=== PATIENT | female | born 2000 ===

== ENCOUNTER 2018-02-11 12:06 | Inpatient (IN) | payer OTHER ==
--- NOTE | 2018-01-28 20:50 | BGECT ---
[f rep st] OUTPATIENT ECT ECT CONSULTATION IDENTIFYING DATA: Ms. Vonda Lu is a single white female, brought in by her parents, Tita and Lincoln, on the referral of an ECT psychiatrist in [place], [place], Charan Malik MD. She also has a psychiatrist there, Ludin Coburn ([phone]). She is about to begin her sophomore year at . Up until returning to [place], where she will be living in an apartment with roommates, she had been living with her parents and 2 sisters (the 3 of them make up a group of triplets). She is studying early childhood lead teacher education. This patient presents here now on the referral of Dr. Malik, who provided collateral information in order to continue presumed continuation and then maintenance electroconvulsive therapy on the heels of her having received 11 acute right unilateral treatments under his care in [place]. 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 She also suffers with panic disorder by history. She felt no improvement up until 8 treatments, and then terminated at 11, presumptively in part because she was uncomfortable with the cognitive effects she was beginning to experience. She is not fully in remission at this point, scoring a 13 on her QIDS rating scale, and on question 12 she scores a 3, indicating "I think of suicide or several times a day in some detail, or I have made specific plans for suicide, or I have actually tried to take my life." She is endorsing some initial insomnia, middle insomnia , and as well as hypersomnia on this test, and "I feel sad nearly all the time, " scoring 3 on question #5. Her present medications at this time, which effectively did not change during the course of ECT, include Pristiq 100 mg p.o. daily, Lamictal 200 mg p.o. twice daily (she has never had a lamotrigine blood level), leucovorin 25 mg #3 per day, trazodone 100 mg at bedtime, control pills, Xyzal 5 mg at bedtime, Singulair 10 mg p.o. at bedtime, multivitamin, vitamin D, iron, and calcium. She takes Klonopin 0.5 mg, Atarax 50 mg, and Zofran 8 mg p.r.n., and Amerge 2.5 mg, and 2 Aleve with migraine. She describes herself as treatment resistant, per her psychiatrist, having tried and failed Wellbutrin, Celexa, Lexapro, Zoloft, Cymbalta, BuSpar, Vistaril , and Abilify. She had a few months of benefit from Pristiq, Lamictal, and leucovorin for her depression, and Klonopin p.r.n. for her panic attacks, but this petered out. She has tried 10 ketamine infusions with no benefit. She had an event with Viibryd where she developed severe agitation that somebody defined for her as serotonin syndrome (she did not endorse the typical array of symptoms consistent with that). She does score 7/13 questions positive on the mood disorder questionnaire, but she is highly resistant to having it even be entertained, the notion that she might be bipolar spectrum. This has never been presented to her by any of her psychiatrists. She endorses periods of increased irritability, increased self-confidence, increased talkativeness or fast speaking, thoughts racing and more "energy than usual." There is some family history of a maternal grandparent who had ECT successfully, that mother believes was never formally diagnosed, but had symptoms consistent with bipolar. There is no seasonality for this patient, but she does have migraine headaches, early onset of her first depression, nil response to antidepressants , and possible mixed state from an antidepressant (Viibryd). Per Dr. Malik's report, he describes her mostly atypical depressive symptoms, and notes 2 suicide attempts in the past, which were notable as they involved attempted hanging. He also noted in her no seasonal or menstrual cycle related variation in her mood symptoms. She indicates no evidence of psychotic symptoms. Her panic-like events can involve nausea and even occasional vomiting , sweating, tearfulness, palpitations, rubbery knees, butterflies, and a feeling of near syncope. They can last up to half an hour. He indicated that she denied any overt manic or hypomanic episodes. This patient has notably never been on tricyclic antidepressants or MAO inhibitors, nor a host of mood stabilizers or atypical antipsychotics, such as lithium, Depakote, Tegretol, Trileptal, Seroquel, Geodon, Latuda, et cetera. PAST MEDICAL HISTORY: Patient suffers with hives, and migraine headaches. FAMILY HISTORY: Notable for the maternal grandparent who had successful ECT treatment for what sounds like bipolar illness. She has a paternal relative with what sounds like more paranoid schizophrenia. Mother is on antidepressant. She denies any significant substance use history. Please see Dr. Malik's report for social history and further history. MENTAL STATUS EXAM: Patient is a 17-year-old female who appears her stated age. She was tense, and at times tearful during the interview. Clearly uncomfortable with certain topics being broached, such as the engineering writer's sense of a diagnostic uncertainty between bipolar and unipolar depression, as well as psychoeducation being provided about relapse risks during this initial 3-12 months after acute ECT in patients with treatment resistance. She seemed to be initially quite adamant that she intended to get back to school and have no treatment interfere in any significant way with that potential, revealing perhaps some impairment of insight and judgment as she was not appropriately weighing the risk of relapse, or acknowledging that potential when it was described, if she were to do the limited amount of treatment that she felt she would prefer to have. There was some psychomotor slowing and impoverishment of sleep. Her eye contact was, at best, fair. She was well related otherwise, and thought processes were linear. Thought content is positive for ongoing suicidal ideation, without intent or plan. It is clear that she is feeling somewhat overwhelmed and ruminative about the recent treatment she had to endure , and perhaps continue into while she is otherwise trying to get on with her school life. Parents did much of the talking and had to encourage her, as I did , to contribute to the discussion. Again, she seemed negativistic and resistant to certain important parts of the discussion, to the point of, I feel , not fully taking in much of the important psychoeducation. She was appropriately dressed, with adequate hygiene and grooming. Her short-term memory was subjectively clearly still impaired from her recent acute ECT, as would be expected. Formal testing was not done, however. DIAGNOSIS: [place] I: 1. Mood disorder, not otherwise specified; rule out major depressive disorder versus bipolar disorder, not otherwise specified. 2. Anxiety disorder, not otherwise specified. [place] II: Deferred. [place] III: Migraine headaches. [place] IV: Moderate. [place] V: 48. IMPRESSION AND RECOMMENDATIONS: I have a number of concerns about Ms. Lu and her prognosis. I believe she was treated only to a point of partial remission due to likely her own resistance to enduring further treatments, and with it, further cognitive side effects, as she felt compelled to not have to miss any schooling. Treating her to only partial remission, along with her stated desire presently to do only monthly maintenance ECT treatments, and not consider other possible diagnoses, and with it medication changes that may be beneficial (such as considering a bipolar spectrum illness) puts her at great risk of relapse. I expressed very clearly, and in the most innocuous way possible, the possibility that her very treatment resistance could be a function of her dealing with a bipolar spectrum illness. I made it clear that this was far from likely, and certainly not a certainty in my mind. Indeed, she could not be formally diagnosed given an absence of any adin hypomanic or manic episode. I do question, however, what this response to Viibryd consisted of, and some other variables and "red flags" delineated in the history of present illness all would make one wonder about that possible diagnosis. As such, medication change involving getting her off antidepressants and using mood stabilizers alone might be prudent. I would recommend at least getting a lamotrigine blood level. I also strongly encouraged her and family to consider more frequent maintenance treatments, and described how we generally do the taper from acute phase into maintenance, and how it usually involves much more frequent treatments initially than once per month. The "compromise" settled on was for her to come in every other Friday initially. She will be meeting with a new psychiatrist at , and will discuss with her [place] psychiatrist this concept of bipolar spectrum and whether they agree that a change in her medications might be warranted. I also had to prepare the family and patient for coming up with a "game plan" if she were to relapse more substantially. I indicated that usually this would require further acute treatments, which may then necessitate her taking some time off school. This is an example of something that of course she did not like to have to fathom or think about, but it would not be proper for me not to prepare them for that eventuality. I described it as "hoping for the best, but being prepared for the worst." We will continue with right unilateral treatments. A lab slip was given to check a lamotrigine level. I spoke about other medication options, such as using Prozac to help taper her off the Pristiq, with its very short half-life, as a way to avoid serotonin discontinuation symptoms. She understands that there are other medications, such as Latuda and Seroquel, that are FDA approved for presumed bipolar depression, and that low-dose lithium is actually very well- tolerated and complements Lamictal quite well. I bring all of that information up, not to suggest that she make those changes imminently, but that those would be the kind of changes one would consider making if the diagnosis of bipolar spectrum depression was more clearly defined. /[id number]/MODL MTDD
[2018-02-11] MEDS ORDERED: MAGNESIUM HYDROXIDE 30 ML UDCUP PO PRN (17:29)
[2018-02-11] MEDS ORDERED: MAG HYDROX/AL HYDROX/SIMETH 30 ML UDCUP PO PRN (17:29)
[2018-02-11] MEDS ORDERED: ACETAMINOPHEN 325 MG TAB PO PRN (17:29)
[2018-02-11] MEDS ORDERED: clonazePAM 0.5 MG TAB PO PRN (18:04)
[2018-02-11] MEDS ORDERED: ACETAMINOPHEN 500 MG TAB PO PRN (18:07)
[2018-02-11] MEDS ORDERED: IBUPROFEN 600 MG TAB PO PRN (18:08)
[2018-02-11] MEDS ORDERED: AMERGE 2.5 MG PO PRN (18:08)
--- NOTE | 2018-02-11 19:11 | BAPA ---
IDENTIFYING DATA: The patient is a single white female who is a sophomore at . She initially pres ented to this va underwriter for consultation on 01/29/2018 accompanied by her parents who flew in from [facility] to help her transition back into her sophomore year. She was referred by a psychiatrist in [facility] who had just completed an acute course of right unilateral ECT. She also has a psychiatrist there. Her plan was to continue maintenance ECT with this va underwriter while she attempted to initiate her schooling at . Please see the va underwriter's initial consultation dated 01/29/18. The patient underwent her first maintenance treatment approximately a week and a half after her last acute treatment in [place] under this va underwriter's care on Tuesday 02/06. At that point, she scored an 18 on her QIDS with question #9 which asks about suicidal ideation being scored a 2 out of 3, which reflected her not being in remission. As one could read in my initial consultation, it was clear deandra t this patient chose to terminate acute ECT perhaps prematurely in order to regain cognitive skills s ufficiently to start into her sophomore year with the hope and expectation that she would be able to get away with fairly infrequent maintenance treatments, medication management at [facility], and ther apy. At that first visit on 02/06 for ECT, she was expressing suicidal ideation, but it was only deandra t, with no intent or plan. She had a fairly good support system in [place], including friends and ro ommates who are aware of her treatment and diagnosis, psychiatrist and therapist, as well as this wri ter. Her mother planned to come back with each and every maintenance ECT to help her through it. Hayden webster understood, as did parents, that her relapse risk, given only a partial response at the end of her ECT and a self-imposed restriction on the frequency with which she would allow herself to do maintena nce ECT, put her at risk for more severe relapse. Indeed, on 02/09/2018, I received an emergency keyla ne call from her parents, with whom I spoke for 60 minutes. The patient had texted them that she was having more intrusive suicidal ideation and was not sure if she could be safe alone. She at that ti me was surrounded by friends and roommates, with mother planning to fly in that day. I counseled the m to have patient go to the emergency department, but the family wished to spare her the "trauma" of going to the emergency department and asked about direct admission which could theoretically occur af ter ECT 2 days later. She was to have strict 24/[address] with all means of self-harm florence davis from her. I discussed with the parents that she clearly, in retrospect, terminated acute ECT to o soon. I also expressed, as I did my initial consultation, that a med regimen change that entertain s the possibility of bipolar spectrum illness might be considered. [facility] plus medication changes. When she presented today for ECT, her QI DS score had only increased, and her score on question 12, which reflects suicidal ideation, had now risen to the highest score of 3. It was unclear whether she could be kept safe even with her mother staying with her. Indeed, Mother is willing to essentially live here temporarily until her daughter is in a better place in terms of mood and side effects from ECT. We proceeded with right unilateral ECT today. It was discussed that bilateral treatments may be needed. They understand the va underwriter's p kvng to do at least 4-6 more acute treatments while considering medication changes. A voicemail has b pro left for her psychiatrist at [facility]. I might recommend changes such as adding lithium given its benefit as an augmentation agent in major depressive disorder as well as being a mood stabilizer, having neuroprotective benefit and most importantly anti-suicidal ideation effects. An atypical ant ipsychotic such as Latuda or Vraylar will also be considered. Another option that was discussed at [facility] with mother and patient was the possibility of having her come off antidepressant. Pristiq wit h its short half-life would create significant discontinuation symptoms to taper it, but one could im plement Prozac 20-40 mg for about 1 week to replace the Pristiq, followed by discontinuation of the P rozac. This would likely prevent discontinuation symptoms. My suggestion about the possibility of c oming off antidepressant is based on the possibility of bipolar spectrum illness. (I emphasized the word "possibility.") Furthermore, simply looking back at history, this patient has only had at best neutral effects from antidepressants and upon further exploration with Mother and patient, what sound s most consistent with a mixed agitated state on Viibryd. Mother also corroborates that she has seen this patient in similar agitated states and perhaps even expansive states at other times other than with the use of Viibryd. Please see my initial consultation to further delineate the "red flags " th at pull for the possibility of a bipolar spectrum condition. Other plans while she is in the hospita l would be to discontinue her leucovorin, as this has proved nonbeneficial and is problematic being d osed 3 times per day. I will reduce trazodone 50 mg, as the 100 mg dose along with Pristiq does incr ease the antidepressant load. Lamictal will be reduced to 100 mg at h.s. during the acute course of ECT. PAST MEDICAL, PSYCHIATRIC, FAMILY, SOCIAL HISTORIES: See initial consultation dated 01/28/18. MENTAL STATUS EXAM: The patient is a 17-year-old female who appears her stated age. She is tense, c onstricted, and dysphoric during the interview, with fair eye contact, impoverished and monotonous sp eech. There is psychomotor slowing. She is less negativistic and hostile during this meeting and mo re willing to accept the va underwriter's suggestions with some thoughtfulness rather than quick dismissal, i ncluding the notion of doing further acute ECT and entertaining the possibility of bipolar spectrum i llness. Thought processes were goal directed. Thought content is positive for suicidal ideation wit h decreased impulse control around self-destructive thoughts, which have become more continuous and i ntrusive and intense. (She has a history of suicide attempts by hanging). She has no homicidal idea tion. No psychotic symptoms. Judgment and insight are fair at best. ADMITTING DIAGNOSIS: [place] I: Mood disorder, not otherwise specified; rule out treatment-resistant major depressive disord er versus bipolar disorder, unspecified. Anxiety disorder, unspecified. [place] II: Deferred. [place] III: Migraine headaches. [place] IV: Moderate. [place] V: 35. PLAN: As discussed above. /[id number]/MODL
[2018-02-11] MEDS ORDERED: CETIRIZINE 10 MG TAB PO SCH (21:00)
[2018-02-11] MEDS: traZODone 50 MG TAB PO SCH (21:32)
[2018-02-11] MEDS: lamoTRIgine 100 MG TAB PO SCH (21:32)
[2018-02-12 08:01] LABS: PLATELET COUNT 248 10^3/uL (150-400)
[2018-02-12] MEDS ORDERED: MULTIVITAMINS 1 EACH TAB PO SCH (09:00)
--- NOTE | 2018-02-12 11:03 | ASMTBHMTP ---
Master Treatment Plan Master Treatment Plan Answers: Depressed Mood with for: Suicidal Ideation Diagnosis on Admission: Mood Disorder, Not Other Specified Expected length of stay: 5-10 Reason for admission: Notes: Per Dr. García report: "...On 02/09/18, I received an emergency phone call from her parents, with whom I spoke for 60 minutes. The patient had text messaged them that she was having more intrusive suicidal ideation and was not sure if she could be safe. She at that time was surrounded by friends and roommates, with mother planning to fly in that day. I counseled them to have patient go to the emergency department, but the family wished to spare her the "trauma" of going to the emergency department and asked about direct admission which could theoretically occur after ECT 2 days later. She was to have strict 24/ supervision in place with all means of self-harm taken from her. I discussed with the parents that she clearly, in retrospect, terminated acute ECT too soon. I also expressed, as I did my initial consultation, that a med regimen change that entertains the possibliity of bipolar spectrum illness might be considered. I recommend that she come to inpatient to accomplish further acute ECT plus medication changes." Patient's stated presenting problems: Notes: "I have been doing ECT at home and here. I have been inpatient 3 times before. I wasn't safe at home. I still feel suicidal but I'm not likely to act on the urges here. I feel a little better today". Patient's goals for treatment: Notes: "I want to get better". Patient's strengths: Notes: "I'm a nice person". Identify supports outside of hospital: Notes: "My parents, I'm part of a triplet so my two other sisters and friends". Discharge criteria: Notes: SI will resolve and ct. will have a plan to safely manage recurrent suicidal ideation. Initial disposition plan/considerations: Notes: Continue ECT and MH services in the community. Master Treatment Plan Required Signatures Psychiatrist signature: Answers: Psychiatrist: RN on-shift signature: Answers: RN: Patient signature: Answers: Patient: Date Signed: 02/12/2018 11:01 AM Electronically Signed By:Chichi Garcia
--- NOTE | 2018-02-12 11:06 | ASMTCMCOM ---
CM Note CM Note Notes: CC and ct. completed MTP. Ct. was pleasant and cooperative. She reported that she is still experiencing strong SI but over all feels a little better. She has a therapist and a psychiatrist in the community but couldn't remember their names. She has been participating in groups. MOC is currently in town and [facility] will be coming in when mom leaves. Plan is to continue ECT inpatient. Date Signed: 02/12/2018 11:06 AM Electronically Signed By:Chichi Garcia
--- NOTE | 2018-02-12 11:40 | ASMTTLCEVL ---
TLC Evaluation - Basic Information Evaluation Start Date and 02/12/2018 08:47 AM Time Hospital Status Answers: Voluntary Narrative Notes: The patient is a 17 YO [place]ian, female, single with no children, student, with a HX of acute course of right unilateral ECT treatment in [place], [place]. She is living an apartment in [place], [place]. The patient arrived voluntarily following an 15:00 ECT OP appointment with Dr. García. Per Dr. García's report, "She initially presented to this service writer for consultation 01/29/2018 accompanied by her parents who flew in from [place] to help her transition back into her sophomore year. She was referred by a psychiatrist in [place]...Her plan was to continue maintenance ECT with this service writer while she attempted to initiate her school at . Her first maintenance treatment was approximately a week and a half after her last acute treatment in [place] under this service writer's care on Friday, 02/06. As one could read in my initial consultation, it was clear that this patient chose to terminate acute ECT perhaps prematurely in order to regain cognitive skills sufficiently to start into her sophomore year with the hope and expectation that she would be able to get away with fairly infrequent maintenance treatments, medication management at [facility], and therapy." At this visit, she was expressing SI w/o intent or plan. "...On 02/09/18, I received an emergency phone call from her parents, with whom I spoke for 60 minutes. The patient had text messaged them that she was having more intrusive suicidal ideation and was not sure if she could be safe. She at that time was surrounded by friends and roommates, with mother planning to fly in that day. I counseled them to have patient go to the emergency department, but the family wished to spare her the "trauma" of going to the emergency department and asked about direct admission which could theoretically occur after ECT 2 days later. She was to have strict 24/[address] with all means of self-harm taken from her. I discussed with the parents that she clearly, in retrospect, terminated acute ECT too soon. I also expressed, as I did my initial consultation, that a med regimen change that entertains the possibliity of bipolar spectrum illness might be considered. I recommend that she come to inpatient to accomplish further acute ECT plus medication changes." Diagnosis History Notes: Per Dr. García's report, "Mood disorder, not otherwise specified; rule out treatment-resistant major depression disorder versus bipolar disorder, unspecified. Anxiety disorder, unspecified." Prior suicide attempts Notes: unable to assess Prior hospitalizations Notes: unknown Treatment Responses Notes: unable to assess History of violence Notes: unable to assess Therapist: unable to assess Psychiatrist: Dr. García Medications (name, dosage, route, freq uency) Notes: Per Dr. García's report, "I will reduce trazadone 50mg, as the 100 mg dose along with Pristiq does increase antidepressant load. Lamictal will be reduced to 100mg at HS during the acute course of ECT... Other plans while she is in the hospital would be to discontinue her leucovorin, as this has proved nonbeneficial and is problematic being dosed 3x per day...I might recommend changes such as adding lithium given its benefit as an augmentation agent in major depressive disorder as well as being a mood stabilizer, having neuroprotective benefit and most importantly anti-suicidal ideation effects. An atypical antipsychotic such as Latuda or Vraylar will also be considered. Another option that was discussed at length with mother and patient was the possibility of having her come off antidepressant. Pristiq with its short half-life would create significant discontinuation symptoms to taper it, but one could implement Prozac 20-40mg for about 1 week to replace the Pristiq, followed by discontinuation of Prozac." Allergies/Reaction Notes: unable to assess Sleep Notes: unable to assess Appetite Notes: unable to assess Medical/Surgical history Notes: unable to assess Substance use history (frequency, intensity, his tory, duration) Notes: unable to assess Family composition Notes: The patient's parents are located in [place], [place], however, the patient's mother is willing to stay in [place], [place] temporarily and during the patient's maintenance ECT treatments. Need for family Answers: Yes participation in patient's care Family psychiatric/substance abuse history Notes: unable to assess Developmental history Notes: unable to assess Abuse concerns Answers: None Marital status/children Notes: unable to assess Living situation Notes: The patient lives in [place], [place] with roommates. She is from [place], [place]. Sexual history/orientation Notes: unable to assess Peer support/family strengths Notes: Per Dr. García's report, "She had a fairly good support system in [place], including friends and roommates who are aware of her treatment and diagnosis, psychiatrist and therapist, as well as this service writer." Education level/history Notes: The patient is in her sophmore year at . Work history Notes: unable to assess Notes: unable to assess Legal Notes: unable to assess Sabianism/Spiritual Notes: unable to assess Leisure Notes: unable to assess Collateral Notes: The collateral data was obtained from current and previous [facility] ED records/staff. Patient's strengths Answers: Intelligent (Please select at least TWO strengths): Motivated for Treatment Supportive Family TLC Evaluation - Mental Status Exam Appearance: Answers: Appropriate Eye Contact: Answers: Appropriate for Culture Intermittent Mood: Answers: Depressed Euthymic Irritable Affect: Answers: Appropriate Apprehensive Congruent w/ Mood Constricted Guarded Behavior: Answers: Appropriate Cooperative Guarded Resistive to Care Suspicious Speech: Answers: Relevant Clear Coherent Circumstantial Delayed Slowed Thought Process: Answers: Goal Oriented Insight: Answers: Fair Judgement: Answers: Poor Manic Signs/Symptoms Answers: Irritability Depression Answers: Diminished Interest Signs/Symptoms: Diminished Pleasure Hopelessness Sad Mood Withdrawn Anxiety Signs/Symptoms Answers: Generalized Anxiety Hallucinations: Answers: None Current Stage of Change Answers: Contemplation Pt reported to have Answers: Yes suicidal/self-injuring ideation/behavior? Pt reported to be making Answers: No suicidal/self-injuring threats? Pt reported to have Answers: No aggression/assault ideation/behavior? Pt reported to be making Answers: No aggression/assault threats? Pt exhibits inability to Answers: No care for self/grave disability? Ideation/behavior is Answers: No chronic? Patient has a specific Answers: No plan? Pt has access to means to Answers: No execute the plan? Ideation involves Answers: No serious/lethal intent? Ideation has Answers: No delusional/hallucinatory content? History of Answers: Yes suicidal/self-injuring ideation, behavior, or threats? History of Answers: No aggressive/assaultive ideation, behavior, or threats? TLC Evaluation - Suicide/Homicide Risk Suicide Risk Factors: Answers: < 20 or > 40 Years of Age Agitation Anhedonia Anxiety/Panic, Severe Bipolar Disorder Major Depression Single Current Suicidal Answers: Yes Ideation? Current Suicide Ideation QIDS question 12 = 3 Frequency: Current Suicidal Ideation Answers: Yes in the Past 48 Hours? Current Suicidal Ideation Answers: Yes in the Past Month? Suicide Internal Answers: Absence of Psychosis Protective Factors: Jamin with Stress Suicide External Answers: Positive Therapeutic Protective Factors: Relationships Social Support Ranking of patient's Answers: Severe suicidal risk: Ranking of patient's Answers: Low homicidal risk: TLC Evaluation - Wrap-up BDI Total Score: N/A BDI Question #2 Score: N/A BDI Question #9 Score: N/A BSS Total Score: N/A AXIS I Diagnosis (include DSM-V and ICD-10 codes), must also be entered in [employer], which is the source of truth. Notes: Mood disorder, not otherwise specified; rule out treatment resistant major depression disorder versus bipolar disorder, unspecified. Anxiety disorder, unspecified. Evaluation End Date and 02/12/2018 10:25 AM Time (HH:CANDACE): Date Signed: 02/12/2018 10:25 AM Electronically Signed By:Laura Barkley
--- NOTE | 2018-02-12 11:42 | ASMTTCLDSP ---
TLC Discharge Disposition Disposition: Answers: Admit Disposition Notes: Notes: In consultation with [facility] on-call psychiatrist, Percy García MD. Dr. García advised that the patient be directly admitted on a voluntary basis. Was patient given the Answers: Not applicable Inpatient [facility] Prohibited Belongings List while in the ED? For inpatient Percy García MD admission, the following psychiatrist agreed to accept patient for admission to [facility]): Date Signed: 02/12/2018 11:41 AM Electronically Signed By:Laura Barkley
--- NOTE | 2018-02-12 13:30 | BCON ---
DATE OF CONSULTATION: 02/12/2018 REFERRING PHYSICIAN: Percy García MD REASON FOR REFERRAL: Medical clearance for inpatient behavioral [facility] stay. HISTORY OF PRESENT ILLNESS: This patient has been a patient of Dr. García's, receiving ECT as an outpatient. She had increasing suicidal ideation and so was admitted to Inpatient Behavioral Health for safety and to continue more intensive ECT. She is currently without any acute complaints. Yesterday, she took some Vicodin and ondansetron for headache and nausea after ECT. She has a history of migraine headaches, but has not had any migraines while she has been here. PAST MEDICAL HISTORY: 1. Mental health issues with depression and current diagnosis of bipolar disorder. 2. Anemia. 3. Migraine headaches. 4. Urticaria. SOCIAL HISTORY: She is a student at the [employer]. She is a nonsmoker. FAMILY HISTORY: She is 1 of a triplet. Family history is otherwise noncontributory. MEDICATIONS: Prior to admission: 1. Levocetirizine. 2. Trazodone 100 mg q.h.s. 3. control pill. 4. Montelukast 10 mg q.h.s. 5. Desvenlafaxine 100 mg p.o. daily. 6. Ondansetron 8 mg p.o. p.r.n. 7. Multivitamin daily. 8. Leucovorin 25 mg p.o. t.i.d. 9. Lamotrigine 400 mg p.o. b.i.d. 10. Clonazepam 0.5 mg p.o. p.r.n. 11. Hydroxyzine 50 mg p.o. p.r.n. 12. Naratriptan 2.5 mg p.o. p.r.n. 13. Naproxen p.r.n. REVIEW OF SYSTEMS: A 10-point review of systems was conducted, and other than as in HPI, was negative. PHYSICAL EXAM: VITAL SIGNS: Blood pressure is 105/59, heart rate is 73, respiratory rate is 14, oxygen saturation is 98% on room air, temperature is 36.6 degrees centigrade. Her weight is 66.3 kg for a body mass index of 25.5. GENERAL: This is a well-nourished, well-developed woman lying in bed, accompanied by her mother, dressed in street clothes, cooperative, and in no acute distress. HEENT: Extraocular movements are intact. Pupils are equal, round, reactive to light. Mucous membranes are moist. Dentition is in good condition. She has an uncrowded airway, Mallampati class 1. NECK: Supple. HEART: Regular rate and rhythm with no murmurs, rubs, or gallops. RESPIRATORY : Lungs are clear to auscultation bilaterally. ABDOMEN: Benign. EXTREMITIES : There is no cyanosis, clubbing, or edema. NEUROLOGIC: She is alert and oriented x3. Cranial nerves 2-12 are grossly intact. There is no focal weakness and sensation is intact to light touch. SKIN: There are no urticaria. LABORATORY STUDIES: From today, CBC revealed slight anemia with a low hemoglobin of 12.3, hematocrit was normal. Her MCV was low at 80.2, as were MCH and MCHC. Otherwise, CBC was overall within normal limits. Comprehensive metabolic profile showed normal renal function and electrolytes and normal liver functions except for a slightly low albumin at 3.3. Vitamin B12 was normal at 642. Vitamin D was normal. Folate was greater than 20 and TSH was normal at 0.887. ASSESSMENT/RECOMMENDATIONS: 1. Mental health issues pending further evaluation and management per Psychiatry and the mental health team. 2. Anemia. Query whether this may be due to menstruation in a young woman. I have ordered an iron panel as her indices are consistent with iron deficiency. 3. Migraine headaches. Her naratriptan has been ordered on a p.r.n. basis and this is appropriate. 4. Urticaria. Apparently adequately controlled with cetirizine and with montelukast. Hydroxyzine may have been ordered p.r.n. breakthrough and this should be appropriate to use should she develop urticaria. I see no medical contraindications to this patient's continued stay on the inpatient behavioral health unit or to any psychiatric medications or procedures. Thank you very much for including me in the care of this patient and please do not hesitate to contact me or the hospitalist service should there be need for further medical evaluation. /[id number]/MODL MTDD
[2018-02-12] MEDS: MULTIVITAMINS 1 EACH TAB PO SCH (14:32)
--- NOTE | 2018-02-12 16:04 | SOAPPROG ---
SOAP Progress Note Assessment/Plan: Assessment: Mood NOS, TRD, R/o MDD, vs Bipolar Plan: 02/12/18 16:00 Met with pt and spoke with mother by phone. Pt in room, isolating with notable PMR, affective constriction, impov speech, monotone, poor grooming, fair eye contact, well related. Admits to hopelessness and on going SI with tenuous I/C if out of hospital. No sense of urgency to act in self destructive way in hospital. Wishes to cont RUL ECT but will entertain option of switch to Bilateral if no clear robust benefit. Reviewed med change options including Latuda v Vraylar vs [place]. Pt gives i/c to start lithium understanding r/b/a' s. Reviewed med changes with mother. MAY start to transition her off of pristique with prozac soon, too. Objective: Vital Signs Temp Pulse Resp BP Pulse Ox 36.6 C 73 14 105/59 L 98 02/12/18 06:00 02/12/18 06:00 02/12/18 06:00 02/12/18 06:00 02/12/18 06:00 Laboratory Results 02/12/18 06:10 02/12/18 06:10 ICD10 Worksheet Patient Problems: Problems Problem Status Onset Depressed Acute
[2018-02-12] MEDS ORDERED: MONTELUKAST SODIUM 10 MG TAB PO SCH (18:00)
[2018-02-12] MEDS: MONTELUKAST SODIUM 10 MG TAB PO SCH (21:18)
[2018-02-12] MEDS: traZODone 50 MG TAB PO SCH (21:18)
[2018-02-12] MEDS: SPRINTEC PO SCH (21:19)
--- NOTE | 2018-02-12 21:43 | PDMN ---
Medical Necessity Medical necessity: Pt meets inpt criteria per MD order and [id number], Anxiety Disorders (excluding Posttraumatic Stress Disorder), Adult: Inpatient Care, 2 days. Pt admitted w/anxiety disorder, unspecified and mood disorder, rule out treatment resistant major depressive disorder, hx suicide attempts. Pt requires Inpt hospitalization for safety, diagnosis clarification, medication evaluation, ECT treatment.
[2018-02-12] MEDS: LITHIUM CARBONATE 300 MG CAP PO SCH (21:49)
[2018-02-13] MEDS ORDERED: ONDANSETRON DISINTEGRATING 4 MG TAB PO PRN ×2 (04:00→16:15)
[2018-02-13] MEDS ORDERED: NS 1,000 ML IV PRN ×2 (04:00→16:15)
[2018-02-13] MEDS ORDERED: CITRIC ACID/SODIUM CITRATE 30 ML UDCUP PO PRN ×2 (04:00→16:15)
--- NOTE | 2018-02-13 10:54 | PDHPUP ---
History & Physical Update H&P update statement: This history and physical update is based on an assessment of the patient which was completed after admission or registration (within 24 hours), but prior to the surgery/procedure. H&P update: H&P reviewed & patient examined, no change in patient's condition since H&P completed
--- NOTE | 2018-02-13 10:59 | PDECTPN ---
ECT Progress Note Patient Problems: Problems Problem Status Onset Code Depressed Acute F32.9 Date: 02/13/18 Treatment#: 3 ECT provider: Percy García Anesthesia: Uriel Freitas Stimulus dose (%): 90 Pulse width: 0.3 ECT EMG (sec): 32 ECT EEG (sec): 66 ECT treatment type: unilateral QIDS-SR Total Score: 14 QIDS-SR Question #12 Score: 2 MMSE Total Score (Max = 21): 20 Next ECT date: 02/16/18 Next ECT time: 09:00 O/P psychiatrist follow up with DrCarmelina: Harika Jose O/P psychiatrist follow up: letter Home medications: Medication Instructions Recorded Amerge 2.5 mg PO PRN PRN 02/04/18 Leucovorin 25 mg (*) 25 mg PO TID 02/04/18 Pristiq 100 mg PO DAILY 02/04/18 Sprintec 28 Day Tablet 1 tab PO DAILY 02/04/18 Xyzal 5 mg PO HS 02/04/18 Ibuprofen [Advil] 200 mg PO PRN PRN 02/12/18 Multivitamins [Multivitamin (*)] 1 each PO DAILY 02/12/18 clonazePAM [Klonopin (*)] 0.5 mg PO DAILY PRN 02/12/18 lamoTRIgine [Lamictal] 200 mg PO BID 02/12/18 traZODone [traZODONE 100MG (*)] 100 mg PO HS 02/12/18 Current treatment plan: acute phase Treatment plan frequency: 3 times per week ECT narrative: Note from 02/12: 02/12/18 16:00 Met with pt and spoke with mother by phone. Pt in room, isolating with notable PMR, affective constriction, impov speech, monotone, poor grooming, fair eye contact, well related. Admits to hopelessness and on going SI with tenuous I/C if out of hospital. No sense of urgency to act in self destructive way in hospital. Wishes to cont RUL ECT but will entertain option of switch to Bilateral if no clear robust benefit. Reviewed med change options including Latuda v Vraylar vs [place]. Pt gives i/c to start lithium understanding r/b/a' s. Reviewed med changes with mother. MAY start to transition her off of pristique with prozac soon, too. 02/13/18 Pt has a small decrease in QIDS score to 16 with a "2" on Q 12. Mental status unchanged from 02/12, but perhaps a bit garment cutter. Did start Li 300 mg last night with no adverse effect. SPoke with her this AM about her thoughts on transitioning her off Pristique in the service of ultimately using a more exclusively mood stabilizing regimen, such as LMT, Li and perhaps an AAP. Will consult with Dr Jose and her psychiatrist in [facility].
[2018-02-13] MEDS: MULTIVITAMINS 1 EACH TAB PO SCH (12:08)
--- NOTE | 2018-02-13 13:01 | POSTANESTH ---
Post Anesthetic Evaluation Cardiovascular Status: Normal, Stable Respiratory Status: Normal, Stable Level of Consciousness/Mental Status: Can Participate in Eval, Alert and Oriented Pain Control: Adequate, Prn Tx Ordered Nausea/Vomiting Control: Adequate, Prn Tx Ordered Complications Possibly Related to Anesthesia: None Noted
--- NOTE | 2018-02-13 13:37 | ASMTCMCOM ---
CM Note CM Note Notes: CC checked in with ct. who was taking a nap following ECT. Ct. did not want to engage in conversation but said that she is doing fine. Her mother visited her during visiting hours. Date Signed: 02/13/2018 01:36 PM Electronically Signed By:Chichi Garcia
[2018-02-13] MEDS: FERROUS SULFATE 325 MG TAB PO SCH (14:37)
[2018-02-13] MEDS ORDERED: clonazePAM 0.5 MG TAB PO PRN (15:51)
[2018-02-13] MEDS: SPRINTEC PO SCH (20:59)
[2018-02-13] MEDS: traZODone 50 MG TAB PO SCH (21:00)
[2018-02-13] MEDS: MONTELUKAST SODIUM 10 MG TAB PO SCH (21:00)
[2018-02-13] MEDS: lamoTRIgine 100 MG TAB PO SCH (21:00)
[2018-02-13] MEDS: LITHIUM CARBONATE 300 MG CAP PO SCH (21:00)
[2018-02-14] MEDS: FERROUS SULFATE 325 MG TAB PO SCH (08:12)
[2018-02-14] MEDS: PRISTIQUE PO SCH ×3 (08:13→15:51)
[2018-02-14] MEDS: MULTIVITAMINS 1 EACH TAB PO SCH (08:15)
[2018-02-14] MEDS ORDERED: FLUoxetine 20 MG CAP PO SCH (09:00)
[2018-02-14] MEDS ORDERED: PRISTIQ 100 MG PO SCH (13:08)
[2018-02-14] MEDS ORDERED: PRISTIQ 50 MG PO SCH (13:27)
[2018-02-14] MEDS ORDERED: DESVENLAFAXINE 100 MG PO ONE (16:04)
--- NOTE | 2018-02-14 17:35 | SOAPPROG ---
SOAP Progress Note Assessment/Plan: Assessment: Per Dr. García's notes: Spoke with Mother and Pt. Both agreed and gave I/C to start transitioning her off AD. Over the weekend, will decrease Pristique to 50 mg and start Prozac 20 mg. By Friday, I intend to d/c Pristique, and increase Prozac to 40 mg for one week after which it too will be discontinued. Its very long 1/2 life will likely prevent the seratonin disontiuation issues from coming off the much shorter 1/2 life Pristique. Reviewed Genetic testing results from mother, given to her from Dr Ingram office. 02/13/18 Pt has a small decrease in QIDS score to 16 with a "2" on Q 12. 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 Did start Li 300 mg last night with no adverse effect. SPoke with her this AM about her thoughts on transitioning her off Pristique in the service of ultimately using a more exclusively mood stabilizing regimen, such as LMT, Li and perhaps an AAP. Will consult with Dr Jose and her psychiatrist in [facility]. Plan: 02/14/18 17:30 1. No significant change in patient's presentation. She isolates in her room and sleeps most of the day. 2. spoke at length with [facility] who had many questions about recent med changes. 3. Patient denied SE's from new meds including [place] and Prozac. She denied any SI. 4. Patient has been taking her own Pristiq 100mg tabs since this med is not no formulary at hospital. MD wrote Rx for 50mg tabs x 3 days in order to complete taper off this medication and titrate her on Prozac per Dr. García's recommendation. MOC and patient both agreed to this plan. MOC filled Rx at outside pharmacy and brought medication back to unit in order for our pharmacy to ID and verify the med. 5. Patient will start Pristiq 50mg daily tomorrow in addition to Prozac 20mg daily. Plan is to continue this x 2 more days, then d/c Pristiq and increase Prozac to 40mg. 6. Patient will continue to have ECT next week. Subjective: Patient continues to present with depressed mood, psychomotor retardation, increased sleep, apathy and anhedonia. She denies any SI today. spoke to [facility] today about recent medication changes recommended by Dr. García. explained that since Pristiq is not available from the hospital pharmacy, she will need to bring in sufficient quantity of 50mg tabs to complete the taper off this medication. gave [facility] a RX for 3 days worth of 50mg tabs which she took to [facility] and filled. MOC said she would rather go ahead and give patient the 100mg tab of Pristiq now rather than wait until the pharmacy can verify the new med. She said it would be "OK" to start the lower dose tomorrow. [facility] had lots of questions about why the changes were made and how long it would take to have patient off antidepressant meds completely. MD attempted to answer [facility]'s questions based on Dr. García's notes, but [facility] was not completely satisfied. MD encouraged [facility] to speak with Dr. García on Friday for a more complete explanation of the treatment plan he outlined to MOC and patient on 02/12 & 02/13. She agreed. Objective: Vital Signs Temp Pulse Resp BP Pulse Ox 36.7 C 80 14 97/60 L 97 02/14/18 06:00 02/14/18 06:00 02/14/18 06:00 02/14/18 06:00 02/14/18 06:00 Laboratory Results 02/12/18 06:10 02/12/18 06:10 02/13/18 02/14/18 02/15/18 05:59 05:59 05:59 Intake Total 150 Balance 150 MSE: Affect: Flat Mood: Depressed TP: Linear TC: Denies any SI today Perception: No AH/VH Insight/Judgment: Fair - Time Spent With Patient Time Spent With Patient: 15" - Pending Discharge Pending Discharge Within 24 Hours: No Pending Discharge Within 48 Hours: No ICD10 Worksheet Patient Problems: Problems Problem Status Onset Depressed Acute
[2018-02-14] MEDS: traZODone 50 MG TAB PO SCH (20:08)
[2018-02-14] MEDS: LITHIUM CARBONATE 300 MG CAP PO SCH (20:08)
[2018-02-14] MEDS: lamoTRIgine 100 MG TAB PO SCH (20:08)
[2018-02-14] MEDS: MONTELUKAST SODIUM 10 MG TAB PO SCH (20:08)
[2018-02-14] MEDS: SPRINTEC PO SCH (20:09)
[2018-02-15] MEDS: FLUoxetine 20 MG CAP PO SCH (07:59)
[2018-02-15] MEDS: FERROUS SULFATE 325 MG TAB PO SCH (07:59)
[2018-02-15] MEDS: MULTIVITAMINS 1 EACH TAB PO SCH (08:00)
--- NOTE | 2018-02-15 16:44 | SOAPPROG ---
SOAP Progress Note Assessment/Plan: Assessment: Per Dr. García's notes: Spoke with Mother and Pt. Both agreed and gave I/C to start transitioning her off AD. Over the weekend, will decrease Pristique to 50 mg and start Prozac 20 mg. By Friday, I intend to d/c Pristique, and increase Prozac to 40 mg for one week after which it too will be discontinued. Its very long 1/2 life will likely prevent the seratonin disontiuation issues from coming off the much shorter 1/2 life Pristique. Reviewed Genetic testing results from mother, given to her from Dr Ingram office. 02/13/18 Pt has a small decrease in QIDS score to 16 with a "2" on Q 12. Mental status unchanged from 02/12, but perhaps a bit ball ender. Did start Li 300 mg last night with no adverse effect. SPoke with her this AM about her thoughts on transitioning her off Pristique in the service of ultimately using a more exclusively mood stabilizing regimen, such as LMT, Li and perhaps an AAP. Will consult with Dr Jose and her psychiatrist in [facility]. Plan: 02/14/18 17:30 1. No significant change in patient's presentation. She isolates in her room and sleeps most of the day. 2. spoke at [place] [facility] questions about recent med changes. 3. Patient denied SE's from new meds including [place] and Prozac. She denied any SI. 4. Patient has been taking her own Pristiq 100mg tabs since this med is not no formulary at hospital. MD wrote Rx for 50mg tabs x 3 days in order to complete taper off this medication and titrate her on Prozac per Dr. García's recommendation. MOC and patient both agreed to this plan. MOC filled Rx at outside pharmacy and brought medication back to unit in order for our pharmacy to ID and verify the med. 5. Patient will start Pristiq 50mg daily tomorrow in addition to Prozac 20mg daily. Plan is to continue this x 2 more days, then d/c Pristiq and increase Prozac to 40mg. 6. Patient will continue to have ECT next week. 02/15/18 16:41 1. Patient was present in milieu more today. 2. Patient says she feels "no different" than before she was admitted. 3. Able to contract for safety, denies any plan or intent to hurt herself now. 4. Ate 50-80% of meals last night and today. 5. ECT tomorrow. Subjective: Patient was sitting in milieu watching TV. This was first time MD and staff noticed patient had left her room except for meals. She told MD she was "less agitated" and "less stressed" today. She reports feeling "frustrated" yesterday d/t mix up with her meds, and b/c her MOC was also escalated. She reports MOC was calmer today and there was "no stress" with meds, so she felt "better...not good, but better." She denied any plan or intent to hurt herself. Objective: Vital Signs Temp Pulse Resp BP Pulse Ox 36.7 C 87 14 100/60 96 02/15/18 06:00 02/15/18 06:00 02/15/18 06:00 02/15/18 06:00 02/15/18 06:00 Laboratory Results 02/12/18 06:10 02/12/18 06:10 02/14/18 02/15/18 02/16/18 05:59 05:59 05:59 Intake Total 150 Balance 150 MSE: Affect: Depressed Mood: "Not good" TP: Linear TC: SI, but no plan or intent Insight/Judgment: Fair - Time Spent With Patient Time Spent With Patient: 15" - Pending Discharge Pending Discharge Within 24 Hours: No Pending Discharge Within 48 Hours: No ICD10 Worksheet Patient Problems: Problems Problem Status Onset Depressed Acute
[2018-02-15] MEDS ORDERED: PRISTIQ 50 MG PO SCH (16:46)
[2018-02-15] MEDS: traZODone 50 MG TAB PO SCH (20:27)
[2018-02-15] MEDS: MONTELUKAST SODIUM 10 MG TAB PO SCH (20:27)
[2018-02-15] MEDS: SPRINTEC PO SCH (20:34)
[2018-02-16] MEDS ORDERED: CITRIC ACID/SODIUM CITRATE 30 ML UDCUP ONE (07:45)
[2018-02-16] MEDS ORDERED: ONDANSETRON DISINTEGRATING 4 MG TAB ONE (07:45)
--- NOTE | 2018-02-16 09:12 | PDANEPAE ---
ECT Pre Anesthetic Evaluation Allergies/Adverse Reactions: lorazepam [From Ativan] Allergy (Severe, Verified 02/06/18 13:29) turned blue and seizure activity Patient ID confirmed: Yes H&P reviewed: Yes Pre-anesthetic history reviewed: Yes Heart: regular rate and rhythym, no murmur, rub, or gallop Lungs: no respiratory distress, clear to auscultation Mallampati Score: Class 1 ASA Status: I Home Medications: Medication Instructions Recorded Amerge 2.5 mg PO PRN PRN 02/04/18 Leucovorin 25 mg (*) 25 mg PO TID 02/04/18 Pristiq 100 mg PO DAILY 02/04/18 Sprintec 28 Day Tablet 1 tab PO DAILY 02/04/18 Xyzal 5 mg PO HS 02/04/18 Ibuprofen [Advil] 200 mg PO PRN PRN 02/12/18 Multivitamins [Multivitamin (*)] 1 each PO DAILY 02/12/18 clonazePAM [Klonopin (*)] 0.5 mg PO DAILY PRN 02/12/18 lamoTRIgine [Lamictal] 200 mg PO BID 02/12/18 traZODone [traZODONE 100MG (*)] 100 mg PO HS 02/12/18 Medication review: completed Patient interviewed: Yes Patient examined: Yes Anesthetic plan discussed with patient: Yes Anesthetic risks discussed with patient: Yes ECT Pre-Anesthetic History - Height & Weight Height: 5.3 cm Weight: 63.503 kg BMI: 55171.95 - Anesthesia History Hx Anesthesia Complications (with details): 1x during ECT was agitated post treatment Family Hx Anesthesia Complications: Mom had post anesthesia agitation - Medications In the Past 6 Months the Patient Has Taken: Narcotics - Tobacco/Alcohol/Drug Use Smoking Status: Never smoked Hx Drug/Substance Abuse: Yes - Prior Surgeries/Hospitalizations Prior Surgeries: wisdom teeth removed 11/2017 Prior Medical Hospitalizations: psyhiatric inpatient admission 3x in the last 3 years - Pulmonary History ECT Hx Asthma: No Hx Abnormal Chest X-Ray: No Hx Oxygen in Use at Home: No - Cardiovascular History Hx Hypertension: No Currently Uses Hypertension Medication: No Hx Arrhythmias: No Hx Palpitations: No Hx Chest Pain: No Hx Coronary Artery / Peripheral Vascular Disease: No Hx Blood Clot: No - Neurologic History Hx Cerebrovascular Accident: No Hx CT Scan Or MRI Of The Brain: Yes Hx Epilepsy, Convulsions, Seizures, Or Blackouts: No Hx Frequent Or Severe Headaches: Yes Hx Numbness: No Hx Neurologic Disorder: No Neurologic History Comment: has had migraines but not for at least 3 months - Dental History Current Dental Issues: None - Endocrine History Hx Diabetes: No Current Daily Insulin Injections: No Hx Thyroid Problems: No - Renal/Urologic History Hx Renal Disorders: No Hx Urinary Tract Problems: No - Liver History Hx Hepatic Disorders: No - Cancer History Hx Cancer: No - Hematology History Hx Unexplained Bleeding Of Any Type: No Hx Ease Of Bruising: No Hx Anemia: No - Gastrointestinal History Hx Gastroesophogeal Reflux Disease: Yes Hx Ulcers: No Hx Hiatal Hernia: No Hx Difficulty Swallowing: No Gastrointestinal History Comment: GERD as a child but then subsided. IBS possible and has occasional prolapsed bowel - Musculoskeletal Hisory Hx Chronic Pain: No Hx Arthritis: No - Opthalmic History Hx Glaucoma: No Visual Assistive Devices: Glasses Hx Opthalmic Disorders: No - Other Health History Physical Disabililty: No Recent Cough, Cold, or Fever: No Significant Weight Loss In The Last 4 Months: No Possible the Patient Might be : No
[2018-02-16] MEDS ORDERED: NALOXONE HCL 0.4 MG/ML INJ IVP PRN (09:23)
[2018-02-16] MEDS ORDERED: PROMETHAZINE HCL 25 MG TAB PO PRN (09:23)
[2018-02-16] MEDS ORDERED: HYDROCODONE/APAP 5/325 TAB PO PRN (09:23)
--- NOTE | 2018-02-16 09:23 | PDECTPN ---
ECT Progress Note Patient Problems: Problems Problem Status Onset Code Depressed Acute F32.9 Date: 02/16/18 Treatment#: 4 ECT provider: Percy García Anesthesia: Uriel Freitas Stimulus dose (%): 95 Pulse width: 0.3 ECT EMG (sec): 32 ECT EEG (sec): 78 ECT treatment type: unilateral QIDS-SR Total Score: 11 QIDS-SR Question #12 Score: 1 MMSE Total Score (Max = 21): 20 Next ECT date: 02/18/18 Next ECT time: 12:00 O/P psychiatrist follow up with DrCarmelina: Harika Jose O/P psychiatrist follow up: letter Home medications: Medication Instructions Recorded Amerge 2.5 mg PO PRN PRN 02/04/18 Leucovorin 25 mg (*) 25 mg PO TID 02/04/18 Pristiq 100 mg PO DAILY 02/04/18 Sprintec 28 Day Tablet 1 tab PO DAILY 02/04/18 Xyzal 5 mg PO HS 02/04/18 Ibuprofen [Advil] 200 mg PO PRN PRN 02/12/18 Multivitamins [Multivitamin (*)] 1 each PO DAILY 02/12/18 clonazePAM [Klonopin (*)] 0.5 mg PO DAILY PRN 02/12/18 lamoTRIgine [Lamictal] 200 mg PO BID 02/12/18 traZODone [traZODONE 100MG (*)] 100 mg PO HS 02/12/18 Current treatment plan: acute phase Treatment plan frequency: 3 times per week ECT narrative: Note from 02/12: 02/12/18 16:00 Met with pt and spoke with mother by phone. Pt in room, isolating with notable PMR, affective constriction, impov speech, monotone, poor grooming, fair eye contact, well related. Admits to hopelessness and on going SI with tenuous I/C if out of hospital. No sense of urgency to act in self destructive way in hospital. Wishes to cont RUL ECT but will entertain option of switch to Bilateral if no clear robust benefit. Reviewed med change options including Latuda v Vraylar vs [place]. Pt gives i/c to start lithium understanding r/b/a' s. Reviewed med changes with mother. MAY start to transition her off of pristique with prozac soon, too. 02/13/18 Pt has a small decrease in QIDS score to 16 with a "2" on Q 12. 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 Did start Li 300 mg last night with no adverse effect. SPoke with her this AM about her thoughts on transitioning her off Pristique in the service of ultimately using a more exclusively mood stabilizing regimen, such as LMT, Li and perhaps an AAP. Will consult with Dr Jose and her psychiatrist in [facility]. 02/16/18 Pt Qids down to 04/09. No problems with med changes. No Seratonin d/c SEs or Li SEs Pt wishes to discharge. Mother can provide 24/7 supervision and she feels safe to leave, feeling a bit improved, and with that,hopeful and future oriented
[2018-02-16] MEDS ORDERED: FLUoxetine 20 MG CAP PO SCH ×2 (09:24→10:45)
[2018-02-16] MEDS: FERROUS SULFATE 325 MG TAB PO SCH (10:28)
[2018-02-16] MEDS: MULTIVITAMINS 1 EACH TAB PO SCH (11:49)
[2018-02-16] MEDS: FLUoxetine 20 MG CAP PO SCH (11:50)
[2018-02-16 12:50] VITALS: BP 101/50
--- NOTE | 2018-02-16 19:29 | GDS ---
IDENTIFYING DATA: The patient is a single, white female who is a sophomore at . She initially pre sented to this tag writer for consultation on 01/29/2018, accompanied by her parents, who flew in from [facility] to help her transition back to her sophomore year. She was referred by a psychiatrist in [facility] who had just completed an acute course of right unilateral ECT. She also has a psychiatrist there. Her plan was to continue maintenance ECT with this tag writer while she attempted to initiate he r schooling at . REASON FOR ADMISSION: Soon after her 1st maintenance ECT treatment under this tag writer's care, she had texted her parents describing an increase in imminent suicidality prompting this present admission. It is clear that the patient had chosen to terminate her acute ECT a bit prematurely in order to reg ain cognitive skills sufficiently to start her sophomore year and then hoped to get away with fairly infrequent maintenance treatments relying more on medication management and therapy. Her QIDS score prior to that 1st maintenance treatment was fairly elevated and reflected some ongoing suicidal ideat ion, indicating that she was far from remission at the tail end of the 11 acute ECTs she had received in [place]. Please see the History of Present Illness from the admission report dated 02/11/2018 , and the tag writer's initial consultation dated 01/29/2018, for further background. ROUTINE PHYSICAL EXAM: Performed by Tyler Vasquez MD, which revealed: 1. Mental health issues, pending further evaluation and management per Psychiatry. 2. Anemia. Query whether this may be due to menstruation in a young woman. I have ordered an iron panel as her indices are consistent with iron deficiency. 3. Migraine headaches. Her naratriptan has been ordered on a p.r.n. basis and this is appropriate. 4. Urticaria. Apparently adequately controlled with cetirizine and with montelukast. Hydroxyzine m ay have been ordered p.r.n. breakthrough and this should be appropriate to use should she develop urt icaria. LABS/TESTING: Patient's CBC showed hematocrit of 38.1 and hemoglobin of 12.3, which was just under n ormal range. Her MCV was low at 80.2. Biochem profile was within normal limits. Iron studies showe d an iron of 64, a TIBC of 365, and iron saturation of 18, which was low. B12 level was normal at 64 2. 25-hydroxy vitamin D was 45. Folate was greater than 20. TSH was 0.887. Urinalysis was consist ent with contamination. Toxicology was positive only for benzodiazepines, which was expected as she takes Klonopin p.r.n. HOSPITAL COURSE: In presenting to the hospital, the dual purpose was, of course, to keep her safe gi quynh an increase in suicidal ideation in a young woman with a history of prior suicide attempts, but i t was also in the service of providing more aggressive treatment including further acute ECT as in my opinion, it is clear that she terminated her initial course prematurely for reasons described. Pan christian, and after a thorough discussion with the patient and mother about diagnostic issues, it was decided to make some medication changes that would be reflective of a possible bipolar spectrum condi tion. Mother had provided further collateral information that further increased the suspicion for th at possibility. The most important variables taken into consideration included the patient's respons e to Viibryd that sounded more consistent with mixed, hypomanic episode (rather than the serotonin sy ndrome speculated upon), positive family history of bipolar illness, dense family history of depressi on itself, very early onset at 11 years old of depression in the identified patient, numerous failed trials of antidepressants, and mother's recollection of other events separate from the Viibryd experi ence in which the patient revealed sub syndromal evidence of zunilda (increased energy and goal-directe d activity, overt productive speech, increased energy, and expansive mood). All that said, the decis ion was to add low-dose lithium and discontinue her Pristiq. To do the latter, we added Prozac given its very long half life to prevent serotonin discontinuation symptoms that would otherwise occur wit h a taper off Pristiq. Lamictal was decreased only in the service of providing the most robust and e fficacious ECT possible (given its anti epileptic effects). The goal, of course, is to restart the L amictal at prior doses when acute ECT is complete. Her lamotrigine level on 01/30/2018, was 6.9, ref lective of her initial dose of 200 mg b.i.d. [place] will also be increased at that point beyond 300 mg off which is being kept at a relatively low dose, given the potential to increase neurocognitive s prakash effects when done with acute ECT. Lastly, a discussion has been had with the patient and mother about the possibility of switching her ECT to bilateral treatments as she has less concern about cogn itive impact now that she has taken a leave from school. DISCHARGE MEDICATIONS: Trazodone 50 mg p.o. q.h.s., lithium carbonate 300 mg p.o. q.h.s., Lamictal 1 00 mg p.o. q.h.s. (to be held the nights prior to ECT), Prozac 40 mg p.o. q.a.m. for 7 days, then dis continue altogether, ferrous sulfate 325 mg p.o. q. day, clonazepam 0.25 mg p.o. q.12 hours p.r.n. se sami anxiety, Xyzal 5 mg p.o. q.h.s., Sprintec 0.25/35, 1 tab p.o. q.h.s., Amerge 2.5 mg p.o. p.r.n. migraine headache, multivitamin 1 p.o. daily (she is no longer on leucovorin and she is on reduced do se of trazodone and Lamictal and Klonopin). DISPOSITION: The patient will return to her home in [place] with the strict 24/ supervision provide d by her mother or father during the duration of her acute ECT course and for at least a couple of we eks beyond that. Mother is to hold onto and dispense all medications and remove from the patient's a ccess any lethal means of self-harm. She should be returned to the emergency department if suicidal thoughts increase in intensity. She will continue with bilateral acute ECT going forward. She is to continue on Prozac 40 mg each day for 1 week and then discontinue it. Her Lamictal dose should be h eld the evenings prior to ECT. DISCHARGE DIAGNOSES: Bipolar disorder, unspecified. Rule out major depressive disorder. Anxiety di sorder, unspecified. Migraine headaches. /[id number]/MODL
== END 2018-02-16 12:20 | disposition home or self-care (01) | DRG 885 ==
LOC: BBEH 17:10
PROVIDERS: ADMIT Psychiatry & Neurology Psychiatry; ATTEND Psychiatry & Neurology Psychiatry
PROC: GZB0ZZZ Electroconvulsive Therapy, Unilateral-Single Seizure (ICD-10-PCS; principal; 2018-02-13)
DX: F31.9 Bipolar disorder, unspecified (principal); G43.909 Migraine, unspecified, not intractable, without status migrainosus; D64.9 Anemia, unspecified; L50.9 Urticaria, unspecified
CPT/HCPCS: 80307; 82607-90; G0480